=== PATIENT | female | born 1990 | race Caucasian/White ===

== ENCOUNTER 2017-10-23 17:05 | Emergency (ER) | payer MEDICAID ==
[~2017-10-23] VITALS: Ht 165.1 cm; Wt 59.1 kg
[~2017-10-23 17:05] MED LIST: CIPR250T52 PO
[2017-10-23 17:17] VITALS: BP 135/77; PULSE 70; RESP 16; TEMP 98.3; O2SAT 99
[2017-10-23 18:09] LABS: BASOPHIL % 0.4 % (0.0-2.0); EOSINOPHIL # 0.1 TH/MM3 (0-0.4); EOSINOPHIL % 0.8 % (0.0-4.0); HEMATOCRIT 40.5 % (35.0-46.0); HEMOGLOBIN 13.7 GM/DL (11.6-15.3); LYMPH % 29.7 % (9.0-44.0); MEAN CELL VOLUME 86.4 FL (80.0-100.0); MEAN CORPUSCULAR HEMOGLOBIN 29.3 PG (27.0-34.0); MEAN CORPUSCULAR HGB CONC 33.9 % (32.0-36.0); MEAN PLATELET VOLUME 7.6 FL (7.0-11.0); MONO % 7.9 % (0.0-8.0); MONOCYTE # 0.5 TH/MM3 (0-0.9); NEUT % 61.2 % (16.0-70.0); PLATELET COUNT 258 TH/MM3 (150-450); RED BLOOD COUNT 4.69 MIL/MM3 (4.00-5.30); RED CELL DISTRIBUTION WIDTH 13.8 % (11.6-17.2); WHITE BLOOD COUNT 6.6 TH/MM3 (4.0-11.0)
[2017-10-23 18:15] LABS: BACTERIA, URINE RARE /hpf; BILIRUBIN, URINE NEG (NEG); BLOOD, URINE MOD (NEG); GLUCOSE,URINE NEG (NEG); KETONE, URINE NEG (NEG); MUCUS URINE FEW /lpf (OCC); NITRITE,URINE NEG (NEG); SQUAMOUS EPITHELIAL CELL URINE 7 /hpf (0-5); URINE COLOR YELLOW (YELLW/STRAW); URINE LEUKOCYTE ESTERASE NEG (NEG)
[2017-10-23 18:31] LABS: ALBUMIN 3.7 GM/DL (3.4-5.0); AST (GOT) 18 U/L (15-37); BICARBONATE 30.9 MEQ/L (21.0-32.0); BLOOD UREA NITROGEN 7 MG/DL (7-18); CALCIUM 9.1 MG/DL (8.5-10.1); CHLORIDE 105 MEQ/L (98-107); GLOMERULAR FILTRATION RATE 85 ML/MIN (>89); GLUCOSE,RANDOM 105 MG/DL (74-106); SODIUM (NA) 140 MEQ/L (136-145)
[2017-10-23 18:33] LABS: ALT (GPT) 18 U/L (10-53)
[2017-10-23 18:34] LABS: ALKALINE PHOSPHATASE 75 U/L (45-117); TOTAL BILIRUBIN ADULT 0.3 MG/DL (0.2-1.0); TOTAL PROTEIN 7.6 GM/DL (6.4-8.2)
--- NOTE | 2017-10-23 18:38 | PD ---
HPI Chief Complaint: Flank/Kidney Pain Time Seen by Provider: 18:27 Travel History International Travel<30 days: No Contact w/Intl Traveler<30days: No Traveled to known affect area: No History of Present Illness HPI 27yo F with no significant PMH presents to the ED with c/o left flank pain, hematuria, and dysuria today. Denies any fever, chest pain, sob, n/v, abdominal pain, focal weakness or numbness, trauma or fall. PFSH Past Medical History Medical History: Denies Significant Hx Tetanus Vaccination: Unknown Influenza Vaccination: No ?: Not LMP: A COUPLE MONTHS AGO Past Surgical History Surgical History: No Previous Surgery Social History Alcohol Use: Yes (OCC) Tobacco Use: Yes Substance Use: Yes (HEROIN A FEW DAYS AGO) Allergies-Medications (Allergen,Severity, Reaction): Coded Allergies: No Known Allergies (Unverified , 10/23/17) Reported Meds & Prescriptions Reported Meds & Active Scripts Active Reported Cipro (Ciprofloxacin HCl) 250 Mg Tab 300 Mg PO BID Review of Systems Except as stated in HPI: all other systems reviewed are Neg Physical Exam Narrative GENERAL: 27yo F in mild distress. SKIN: Focused skin assessment warm/dry. HEAD: Atraumatic. Normocephalic. CARDIOVASCULAR: Regular rate and rhythm. No murmur appreciated. RESPIRATORY: No accessory muscle use. Clear to auscultation. Breath sounds equal bilaterally. GASTROINTESTINAL: Abdomen soft, non-tender, nondistended. No rebound tenderness or guarding. BACK: No midline ttp thoracic or lumbar spine. +CVA tenderness on left. MUSCULOSKELETAL: No obvious deformities. No clubbing. No cyanosis. No edema. NEUROLOGICAL: Awake and alert. No obvious cranial nerve deficits. Motor grossly within normal limits. Normal speech. PSYCHIATRIC: Appropriate mood and affect; insight and judgment normal. Data Data Last Documented VS Vital Signs Date Time Temp Pulse Resp B/P (MAP) Pulse Ox O2 Delivery O2 Flow Rate FiO2 10/23/17 18:08 18 10/23/17 17:17 98.3 70 135/77 (96) 99 Orders Orders Complete Blood Count With Diff (10/23/17 17:21) Comprehensive Metabolic Panel (10/23/17 17:21) Urinalysis - C+S If Indicated (10/23/17 17:21) Ed Urine Pregnancytest Poc (10/23/17 17:21) Ketorolac Inj (Toradol Inj) (10/23/17 18:45) Ct Abd/Pel W/O Iv Contrast (10/23/17 ) Labs Laboratory Tests Test 10/23/17 17:25 White Blood Count 6.6 TH/MM3 Red Blood Count 4.69 MIL/MM3 Hemoglobin 13.7 GM/DL Hematocrit 40.5 % Mean Corpuscular Volume 86.4 FL Mean Corpuscular Hemoglobin 29.3 PG Mean Corpuscular Hemoglobin Concent 33.9 % Red Cell Distribution Width 13.8 % Platelet Count 258 TH/MM3 Mean Platelet Volume 7.6 FL Neutrophils (%) (Auto) 61.2 % Lymphocytes (%) (Auto) 29.7 % Monocytes (%) (Auto) 7.9 % Eosinophils (%) (Auto) 0.8 % Basophils (%) (Auto) 0.4 % Neutrophils # (Auto) 4.0 TH/MM3 Lymphocytes # (Auto) 2.0 TH/MM3 Monocytes # (Auto) 0.5 TH/MM3 Eosinophils # (Auto) 0.1 TH/MM3 Basophils # (Auto) 0.0 TH/MM3 CBC Comment DIFF FINAL Differential Comment Urine Color YELLOW Urine Turbidity CLEAR Urine pH 8.0 Urine Specific [place] 1.015 Urine Protein NEG mg/dL Urine Glucose (UA) NEG mg/dL Urine Ketones NEG mg/dL Urine Occult Blood MOD Urine Nitrite NEG Urine Bilirubin NEG Urine Urobilinogen LESS THAN 2.0 MG/DL Urine Leukocyte Esterase NEG Urine WBC 1 /hpf Urine Squamous Epithelial Cells 7 /hpf Urine Bacteria RARE /hpf Urine Mucus FEW /lpf Microscopic Urinalysis Comment CULT NOT INDICATED Blood Urea Nitrogen 7 MG/DL Creatinine 0.80 MG/DL Random Glucose 105 MG/DL Total Protein 7.6 GM/DL Albumin 3.7 GM/DL Calcium Level 9.1 MG/DL Alkaline Phosphatase 75 U/L Aspartate Amino Transf (AST/SGOT) 18 U/L Alanine Aminotransferase (ALT/SGPT) 18 U/L Total Bilirubin 0.3 MG/DL Sodium Level 140 MEQ/L Potassium Level 4.3 MEQ/L Chloride Level 105 MEQ/L Carbon Dioxide Level 30.9 MEQ/L Anion Gap 4 MEQ/L Estimat Glomerular Filtration Rate 85 ML/MIN [facility] Medical Decision Making Medical Screen Exam Complete: Yes Emergency Medical Condition: Yes Differential Diagnosis Nephrolithiasis vs. musculoskeletal pain vs. pyelonephritis Narrative Course 27yo F with left flank pain and hematuria. No focal neurologic deficits. Urine negative. Labs reviewed, no leukocytosis. H/H normal. CMP unremarkable. UA showed WBC 1. Moderate blood. Culture not indicated. CT a/ p showed no obstructive uropathy. No renal or bladder calculi. Constipation. Pt given toradol and pain relieved. Tolerating PO. Return precautions given. Diagnosis Primary Impression: Hematuria Qualified Codes: R31.9 - Hematuria, unspecified Referrals: Porfirio Lauren MD as needed Patient Instructions: General Instructions Departure Forms: Tests/Procedures Additional Instructions: Please follow up with urology if blood in urine persists. Return to the ED if symptoms worsen. Med/Other Pt SpecificInfo: Prescription(s) given Scripts Acetaminophen (Tylenol) 325 Mg Tab 650 MG PO Q6H Y for PAIN SCALE 1 TO 4, #20 TAB 0 Refills Prov: Jacqueline Buckley DO 10/23/17 Disposition: 01 DISCHARGE HOME Condition: Stable Jacqueline Buckley DO Oct 23, 2017 18:38
[2017-10-23] MEDS ORDERED: KETOROLAC TROMETHAMINE 60 MG/2 ML (IM) VIAL IM ONE (18:45)
--- NOTE | 2017-10-23 19:27 | RADRPT ---
EXAM DATE/TIME: 10/23/2017 19:04 [place] COMPARISON: No previous studies available for comparison. INDICATIONS : Left flank pain, hematuria and dysuria. ORAL CONTRAST: No oral contrast ingested. RADIATION DOSE: 4.46 CTDIvol (mGy) MEDICAL HISTORY : None SURGICAL HISTORY : None. ENCOUNTER: Initial ACUITY: 2 days PAIN SCALE: 9/10 LOCATION: Left flank TECHNIQUE: Volumetric scanning of the abdomen and pelvis was performed. Using automated exposure control and ad justment of the mA and/or kV according to patient size, radiation dose was kept as low as reasonably achievable to obtain optimal diagnostic quality images. DICOM format image data is available electro nically for review and comparison. FINDINGS: Lung bases clear. No acute findings in the liver, spleen, adrenals, kidneys or pancreas. Specifically no hydronephrosis. Ureters are not clearly visualized in the mid and inferior portion. No acute bony abnormalities. There is mild constipation. No free air. Small amount of free fluid in the pelvis. CONCLUSION: 1. No CT findings for obstructive uropathy. No renal or bladder calculi are seen. 2. Constipation. 3. Small amount free fluid in the pelvis. Jayson Hubbard MD on October 23, 2017 at 19:21 Board Certified Radiologist. This report was verified electronically.
[2017-10-23] MEDS ORDERED: TYLE325T PO (20:22)
== END 2017-10-23 20:55 | disposition home or self-care (01) ==
LOC: NEPD 17:05
DX: R31.9 Hematuria, unspecified (principal); K59.00 Constipation, unspecified; Z72.0 Tobacco use
CPT/HCPCS: 74176; 80053; 81001; 84703; 85025; 96372; 99285; J1885

== ENCOUNTER 2017-10-25 06:03 | Emergency (ER) | payer MEDICAID ==
[~2017-10-25] VITALS: Ht 167.6 cm; Wt 65.0 kg
[~2017-10-25 06:03] MED LIST changes: +TYLE325T PO
[2017-10-25 06:06] VITALS: BP 134/98; PULSE 103; RESP 16; TEMP 96.7; O2SAT 98
[2017-10-25 07:11] LABS: BACTERIA, URINE RARE /hpf; BILIRUBIN, URINE NEG (NEG); BLOOD, URINE MOD (NEG); GLUCOSE,URINE NEG (NEG); KETONE, URINE NEG (NEG); MUCUS URINE FEW /lpf (OCC); NITRITE,URINE NEG (NEG); PH, URINE 6.5 (5.0-8.5); SQUAMOUS EPITHELIAL CELL URINE 1 /hpf (0-5); URINE COLOR LIGHT-YELLOW (YELLW/STRAW); URINE LEUKOCYTE ESTERASE NEG (NEG)
== END 2017-10-25 06:58 | disposition left against medical advice (07) ==
LOC: NEPE 06:03
DX: R10.9 Unspecified abdominal pain (principal); Z53.21 Procedure and treatment not carried out due to patient leaving prior to being seen by health care provider
CPT/HCPCS: 81001; 84703; 99281